=== PATIENT | male | born 1940 | race Caucasian/White ===

== ENCOUNTER → 2019-11-18 | Outpatient (CLI) | payer OTHER | LOC: SJCVC 11:34 | PROVIDERS: ATTEND Nuclear Medicine Nuclear Cardiology | DX: I82.5Z9 Chronic embolism and thrombosis of unspecified deep veins of unspecified distal lower extremity (principal); M79.89 Other specified soft tissue disorders; E78.00 Pure hypercholesterolemia, unspecified; I10 Essential (primary) hypertension; Z79.899 Other long term (current) drug therapy ==